=== PATIENT | male | born 1970 | race Hispanic/Latino ===

== ENCOUNTER → 2020-01-25 | Day surgery (SDC) | payer OTHER ==
[~2020-01-25] MED LIST: BUPIVACAINE HCL 0.5% INJ 30 ML VIAL INJ ONE; CEFAZOLIN SOD 1 GM/NS 50ML 50 ML IV ONE; DEXAMETHASONE SOD PHOS INJ 4 MG/ML VIAL ONE; GLYCOPYRROLATE INJ 0.2 MG/ML VIAL ONE; LIDOCAINE HCL 2% LOCAL INJ 5 ML SDV VIAL INJ ONE; LISINOPRIL10 MG PO; MORPHINE SULFATE 2 MG/ML SYR 1ML ONE; ONDANSETRON HCL INJ 2MG/ML 2ML 2 MG/ML VIAL ONE; PROPOFOL IV EMULSION 10 MG/ML 20 ML VIAL ONE; SEVOFLURANE INHAL SOLN 250 ML PEN BTL ONE; VITAMIN B COMP1 EAC4 PO
--- NOTE | 2020-01-25 08:11 | Operative Report ---
DATE OF PROCEDURE: 01/25/2020 SURGEON: Michael Hyde MD ENGINE TEST CELL TECHNICIAN: Deion Roberson PA-C. PREOPERATIVE DIAGNOSIS: Right trigger thumb. POSTOPERATIVE DIAGNOSIS: Right trigger thumb. PROCEDURE: Release of right trigger thumb. INDICATIONS: The patient is a 49-year-old gentleman who has intractable right trigger thumb. The findings and options have been discussed. He would like to proceed with definitive intervention. The risks and benefits were explained. He stated he understood and wished to proceed. PROCEDURE IN DETAIL: The patient was brought to the operating room. He was placed under general anesthetic. His right upper extremity was prepped and draped in a sterile manner. A preoperative time-out was performed. The extremity was exsanguinated and a proximal tourniquet was inflated to 250 mmHg. An incision was made at the base of the thumb. The elsa was identified. This was noted to be thickened. It was released with a 15 blade surgical knife. The release was completed with a pair of tenotomy scissors. Care was taken to keep the incision midline and to avoid any injury to the neurovascular bundles. The tendons were retracted from the wound. There was no further stenosing tenosynovitis. The wound was closed with two interrupted nylon stitches. 3 mL of 0.5% Marcaine without epinephrine were injected at the base of the thumb for digital block. A sterile bandage was applied. He was extubated and transported to the recovery room in stable condition. There was no blood loss and all needle and sponge counts were correct. Michael Hyde MD DR/RAF /[id number]
[2020-01-25 08:55] VITALS: BP 145/93
== END | disposition home or self-care (01) ==
LOC: OR 05:40
PROVIDERS: ATTEND Specialist
DX: M65.311 Trigger thumb, right thumb (principal); I10 Essential (primary) hypertension; Z01.810 Encounter for preprocedural cardiovascular examination; Z01.812 Encounter for preprocedural laboratory examination; Z11.59 Encounter for screening for other viral diseases
CPT/HCPCS: 26055; 93005; J0690; J1100; J2001; J2270; J2405; J2704; U0002